=== PATIENT | female | born 1995 | race American Indian/Alaskan Native ===

== ENCOUNTER 2016-05-06 05:11 | Emergency (ER) | payer BC, OTHER ==
[2016-05-06 06:00] LABS: Basophils % (Auto) 0.6 % (0.0-1.8); Eosinophils % (Auto) 3.8 % (0.0-4.3); Hematocrit 40.6 % (30.3-42.9); Hemoglobin 13.4 gm/dl (10.1-14.3); Mean Corpuscular HGB Conc 33 % (30-34); Mean Corpuscular Hemoglobin 31 pg (28-32); Mean Corpuscular Volume 94 fl (79-97); Platelet Count 256 K/mm3 (140-440); Red Cell Distribution Width 14.3 % (13.2-15.2); White Blood Count 6.6 K/mm3 (4.5-11.0)
[2016-05-06 06:14] LABS: Alanine Aminotransferase 21 units/L (7-56); Albumin 4.2 g/dL (3.9-5); Alkaline Phosphatase 52 units/L (35-129); Bilirubin,Total 0.6 mg/dL (0.1-1.2); Blood Urea Nitrogen 8 mg/dL (7-17); Calcium 9.2 mg/dL (8.4-10.2); Carbon Dioxide 24 mmol/L (22-30); Chloride 97.4 mmol/L (98-107); Glucose 98 mg/dL (65-100); Lipase 74 units/L (13-60); Potassium 5.8 mmol/L (3.6-5.0); Sodium 134 mmol/L (137-145); Total Protein 8.4 g/dL (6.3-8.2)
[2016-05-06 06:30] LABS: Anion Gap 18 mmol/L
[2016-05-06 06:34] LABS: Bilirubin,Urine NEG (Negative); Blood,Urine LG (Negative); Ketones,Urine NEG (Negative); Leukocyte Esterase,Urine NEG (Negative); Mucus,Urine 2+ /HPF; Nitrite,Urine NEG (Negative); Urobilinogen,Urine < 2.0 mg/dL (<2.0)
[2016-05-06 06:38] LABS: RBC,Urine > 182.0 /HPF (0.0-6.0); WBC,Urine > 182.0 /HPF (0.0-6.0)
[2016-05-06] MEDS ORDERED: ROCEPHIN/NS 1 GM/50 ML 50 ML IV ONE (10:36)
[2016-05-06] MEDS ORDERED: NACL 0.9% 1000 ML IV ONE (10:36)
[2016-05-06 11:06] VITALS: BP 111/76
--- NOTE | 2016-05-06 11:29 | Emergency Department Report ---
HPI - General Chief Complaint: Abdominal Pain Time Seen by Provider: 05/06/16 10:29 - HPI HPI: Chief complaint: Left flank and left upper quadrant pain HPI: Patient complains of left upper quadrant and left flank pain for 3-4 weeks. Patient has had frequency but no dysuria. Patient states she had some diarrhea but that has resolved and now she is having a lot of gas and constipation. No nausea or vomiting and patient denies fever. Mode of arrival: private car Source: Patient Began: See above Duration: 3 or 4 weeks Context: See above Quality: Dull Severity: Mild to moderate Improved with: Nothing Worsened with: Nothing Associated signs and symptoms: See above ED Past Medical Hx - Past Medical History Previous Medical History?: No - Surgical History Past Surgical History?: No - Social History Smoking Status: Current Every Day Smoker Substance Use Type: Alcohol, Marijuana - Medications Home Medications: Home Medications Medication Instructions Recorded Confirmed Last Taken Type Fluconazole [Diflucan TAB] 150 mg PO ONCE #1 tablet 05/06/16 Unknown Rx Sulfamethoxazole/Trimethoprim 1 each PO BID #14 tablet 05/06/16 Unknown Rx [Bactrim DS TAB] ED Review of Systems ROS: Stated complaint: CHEST PAIN/ABD/BACK PAIN Other details as noted in HPI ROS Constitutional: No fever ENT: No uri symptoms Cardiovascular: No chest pain Respiratory: No sob or cough GI: No nausea vomiting : No dysuria Skin: No rash Neuro: No focal weakness or numbness Psych: No depression Carlos/lymph: No edema Physical Exam - Physical Exam Vital Signs: Vital Signs 05/06/16 05/06/16 05/06/16 05:26 11:05 11:06 Temperature 97.7 F 97.9 F Pulse Rate 94 H 78 Respiratory 20 18 18 Rate Blood Pressure 146/96 Blood Pressure 111/76 [Left] O2 Sat by Pulse 100 98 Oximetry Physical Exam: GENERAL: The patient is well-developed well-nourished . HEENT: Normocephalic. Atraumatic. Extraocular motions are intact. Patient has moist mucous membranes. NECK: Supple. No meningitic signs are noted. There is no adenopathy noted. CHEST/LUNGS: Clear to auscultation. There is no respiratory distress noted. HEART/CARDIOVASCULAR: Regular. There is no tachycardia. There is no gallop rub or murmur. ABDOMEN: Abdomen is soft, tender left upper quadrant and left flank without rebound or guarding. Patient has normal bowel sounds. There is no abdominal distention. SKIN: There is no rash. There is no edema. There is no diaphoresis. NEURO: The patient is awake, alert, and oriented. The patient is cooperative. The patient has no focal neurologic deficits. The patient has normal speech. MUSCULOSKELETAL: There is no tenderness or deformity. There is no limitation range of motion. There is no evidence of acute injury. ED Course Vital Signs 05/06/16 05/06/16 05/06/16 05:26 11:05 11:06 Temperature 97.7 F 97.9 F Pulse Rate 94 H 78 Respiratory 20 18 18 Rate Blood Pressure 146/96 Blood Pressure 111/76 [Left] O2 Sat by Pulse 100 98 Oximetry - Reevaluation(s) Reevaluation #1: 05/06/16 11:27 Patient given a liter normal saline and 1 g of IV Rocephin and her potassium will be repeated after her IV fluids. ED Medical Decision Making - Lab Data Result diagrams: 05/06/16 05:45 05/06/16 05:45 Laboratory Tests 05/06/16 05:45 HCG, Qual Negative Laboratory Tests 05/06/16 06:06 Ur Specific [place] 1.024 Urine Protein 100 mg/dl Urine Ketones Neg Urine Blood Lg Ur Leukocyte Esterase Neg Urine WBC (Auto) > 182.0 H Urine RBC (Auto) > 182.0 U Epithel Cells (Auto) 10.0 Laboratory Tests 05/06/16 12:06 Potassium 4.2 D Critical care attestation.: If time is entered above; I have spent that time in minutes in the direct care of this critically ill patient, excluding procedure time. ED Disposition Clinical Impression: Urinary tract infection Qualifiers: Urinary tract infection type: site unspecified Hematuria presence: with hematuria Qualified Code(s): N39.0 - Urinary tract infection, site not specified ; R31.9 - Hematuria, unspecified Disposition: DISCHARGED TO HOME OR SELFCARE Is pt being admited?: No Does the pt Need Aspirin: No Condition: Stable Instructions: Abdominal Pain (ED) Prescriptions: Fluconazole [Diflucan TAB] 150 mg PO ONCE #1 tablet Sulfamethoxazole/Trimethoprim [Bactrim DS TAB] 1 each PO BID #14 tablet Referrals: PRIMARY CARE, [Primary Care Provider] - 7-10 days Time of Disposition: 12:41
== END 2016-05-06 13:14 | disposition home or self-care (01) ==
LOC: ED 05:11
DX: N39.0 Urinary tract infection, site not specified (principal); F17.200 Nicotine dependence, unspecified, uncomplicated; F12.10 Cannabis abuse, uncomplicated
CPT/HCPCS: 36415; 80053; 81001; 83690; 84132; 84703; 85025; 87086; 96365; 99283; J0696; J7030

== ENCOUNTER 2016-06-05 12:03 | Emergency (ER) | payer OTHER ==
--- NOTE | 2016-06-05 16:48 | Emergency Department Report ---
ED Female HPI - General Time Seen by Provider: 06/05/16 16:14 - History of Present Illness Initial comments: 20 y/o female complain of urinary tract infection x 1 month .pt state she was taking bactrim and which she only took two pill because made her itch Onset/Timin -: month(s) Quality: burning Improves with: urination Worsens with: none - Related Data Sexually active: Yes Previous Rx's Medication Instructions Recorded Last Taken Type Fluconazole [Diflucan TAB] 150 mg PO ONCE #1 tablet 05/06/16 Unknown Rx Sulfamethoxazole/Trimethoprim 1 each PO BID #14 tablet 05/06/16 Unknown Rx [Bactrim DS TAB] Amoxicillin/K Clav Tab [Augmentin 1 tab PO Q12HR #14 tab 06/05/16 Unknown Rx 875 mg] Ibuprofen [Motrin] 800 mg PO Q8HR PRN #30 tablet 06/05/16 Unknown Rx Allergies Allergy/AdvReac Type Severity Reaction Status Date / Time No Known Allergies Allergy Verified 06/01/14 21:12 ED Review of Systems ROS: Stated complaint: Other details as noted in HPI Constitutional: denies: chills, fever Eyes: denies: eye pain, eye discharge, vision change ENT: denies: ear pain, throat pain Respiratory: denies: cough, shortness of breath, wheezing Cardiovascular: denies: chest pain, palpitations Endocrine: no symptoms reported Gastrointestinal: denies: abdominal pain, nausea, diarrhea Genitourinary: urgency, dysuria. denies: discharge Musculoskeletal: denies: back pain, joint swelling, arthralgia Skin: denies: rash, lesions Neurological: denies: headache, weakness, paresthesias Psychiatric: denies: anxiety, depression Hematological/Lymphatic: denies: easy bleeding, easy bruising ED Past Medical Hx - Social History Smoking Status: Current Every Day Smoker Substance Use Type: Alcohol, Marijuana - Medications Home Medications: Home Medications Medication Instructions Recorded Confirmed Last Taken Type Fluconazole [Diflucan TAB] 150 mg PO ONCE #1 tablet 05/06/16 Unknown Rx Sulfamethoxazole/Trimethoprim 1 each PO BID #14 tablet 05/06/16 Unknown Rx [Bactrim DS TAB] Amoxicillin/K Clav Tab [Augmentin 1 tab PO Q12HR #14 tab 06/05/16 Unknown Rx 875 mg] Ibuprofen [Motrin] 800 mg PO Q8HR PRN #30 tablet 06/05/16 Unknown Rx ED Physical Exam - General General appearance: alert, in no apparent distress - Head Head exam: Present: atraumatic, normocephalic - Eye Eye exam: Present: normal appearance - ENT ENT exam: Present: mucous membranes moist - Neck Neck exam: Present: normal inspection - Respiratory Respiratory exam: Present: normal lung sounds bilaterally. Absent: respiratory distress - Cardiovascular Cardiovascular Exam: Present: regular rate, normal rhythm. Absent: systolic murmur, diastolic murmur, rubs, gallop - GI/Abdominal GI/Abdominal exam: Present: soft, normal bowel sounds - Extremities Exam Extremities exam: Present: normal inspection - Back Exam Back exam: Present: normal inspection - Neurological Exam Neurological exam: Present: alert, oriented X3 - Psychiatric Psychiatric exam: Present: normal affect, normal mood - Skin Skin exam: Present: warm, dry, intact, normal color. Absent: rash Critical care attestation.: If time is entered above; I have spent that time in minutes in the direct care of this critically ill patient, excluding procedure time. ED Disposition Clinical Impression: Sinusitis Qualifiers: Sinusitis location: maxillary Chronicity: acute Recurrence: non-recurrent Qualified Code(s): J01.00 - Acute maxillary sinusitis, unspecified Disposition: DISCHARGED TO HOME OR SELFCARE Is pt being admited?: No Does the pt Need Aspirin: No Condition: Stable Instructions: Sinusitis (ED) Prescriptions: Amoxicillin/K Clav Tab [Augmentin 875 mg] 1 tab PO Q12HR #14 tab Ibuprofen [Motrin] 800 mg PO Q8HR PRN #30 tablet PRN Reason: Pain Referrals: PRIMARY CARE, [Primary Care Provider] - 3-5 Days Forms: Work/School Release Form(ED) Time of Disposition: 17:27
[2016-06-05 17:01] LABS: Bilirubin,Urine NEG (Negative); Blood,Urine MOD (Negative); Ketones,Urine NEG (Negative); Leukocyte Esterase,Urine NEG (Negative); Nitrite,Urine NEG (Negative); Protein,Urine <15 mg/dL mg/dL (Negative); RBC,Urine < 1.0 /HPF (0.0-6.0); Urobilinogen,Urine < 2.0 mg/dL (<2.0); WBC,Urine < 1.0 /HPF (0.0-6.0)
[2016-06-05 17:31] VITALS: BP 117/67
== END 2016-06-05 17:39 | disposition home or self-care (01) ==
LOC: ED 12:03
DX: J01.00 Acute maxillary sinusitis, unspecified (principal); F17.200 Nicotine dependence, unspecified, uncomplicated; F12.10 Cannabis abuse, uncomplicated
CPT/HCPCS: 81001; 81025; 99283

== ENCOUNTER 2017-02-15 23:48 | Emergency (ER) | payer SELFPAY | END 2017-02-16 02:17 | disposition left against medical advice (07) | LOC: ED 23:48 | DX: Z53.21 Procedure and treatment not carried out due to patient leaving prior to being seen by health care provider (principal) ==

== ENCOUNTER 2017-07-23 10:37 | Emergency (ER) | payer SELFPAY ==
[2017-07-23 10:59] VITALS: BP 124/70
== END 2017-07-23 11:47 ==
LOC: ED 10:37
DX: R07.89 Other chest pain (principal); Z53.21 Procedure and treatment not carried out due to patient leaving prior to being seen by health care provider